=== PATIENT | female | born 1975 | race Caucasian/White ===

== ENCOUNTER → 2020-11-19 | Outpatient (CLI) | payer BC, OTHER ==
[~2020-11-19] MED LIST: ALBUTEROL2.5 MG/3 M INH; BUSPIRONE HCL5 MG PO; CLONAZEPAM 1 MG1 M1 PO; CLONAZEPAM2 MG PO; CRUTCH1 EACH MC; DOTTI1 EAC1; FLEXERIL PO; FLUTICASONE PRO16 GM NASAL; HYDROCHLOROTHIA25 M1 PO; LOPID600 MG PO; LOSARTAN-HCTZ1 EACH PO; PREVACID30 MG PO; TRAZODONE 150150 M1 PO; TRAZODONE HCL50 MG PO; VENTOLIN HFA 1818 GM INH; ZESTORETIC 10-1 EACH PO; ZOCOR 10 MG TAB10 M1 PO; ZOCOR 10 MG TAB10 MG PO; ZYRTEC10 MG PO
== END ==
LOC: LAB 07:56
PROVIDERS: ATTEND Student in an Organized Health Care Education/Training Program
DX: Z01.812 Encounter for preprocedural laboratory examination (principal); Z20.822 Contact with and (suspected) exposure to COVID-19

== ENCOUNTER 2020-11-22 06:08 | Day surgery (SDC) | payer BC, OTHER ==
[~2020-11-22] VITALS: Ht 162.6 cm; Wt 97.1 kg
--- NOTE | ~2020-11-22 | O ---
[facility] [place] [address] OPERATIVE REPORT Name: FILIBERTO FITZGERALD Room #: 150-1 [facility] M.R.#: [id number] Admission: 11/22/20 Attend Phys: Tyrone Duong MD Discharge: Date of : 71 Report #: [id number] THIS REPORT FOR: cc: Darya Barrios MD, Pamela MD Shapiro,Tyrone Banuelos MD ~ DATE OF SERVICE: 11/22/2020 PREOPERATIVE DIAGNOSIS: Deviated nasal septum with nasal airway obstruction. POSTOPERATIVE DIAGNOSIS: Deviated nasal septum with nasal airway obstruction. OPERATIVE PROCEDURE: Nasal septoplasty. ANESTHESIA: General by laryngeal mask. HISTORY OF PRESENT ILLNESS: The patient was taken to the operating room and placed in supine position. General anesthesia was induced by laryngeal mask. Once adequate general anesthesia was obtained, local nasal anesthesia was induced by submucoperichondrial injection of 1% lidocaine with 1:100,000 epinephrine and topical application of cocaine solution. The patient was then draped in a sterile manner. The patient had a nasal septal deviation primarily to the left side. A hemitransfixion incision was placed on the left side of the nose and the mucoperichondrium and mucoperiosteum were elevated off of the septum. The cartilage was incised in the form of the bony cartilaginous junction and the portion of cartilage and bone was removed from the mid portion of the septum. There was a septal spur along the floor consisting of hypertrophic cartilage and a fracture of the maxillary crest. The cartilage was removed using a long strip. The maxillary crest was then fractured and rongeured. After these maneuvers, the septum sat more in the midline. The hemitransfixion incision was then closed. A 4-0 chromic suture and a 4-0 plain mattress suture was placed as well. The patient tolerated the procedure well. Blood loss approximately 10 mL. The patient was then awoken and taken to recovery room in stable condition for postoperative monitoring. By: 0715 0725 Tyrone Duong MD /nt
[2020-11-22 06:55] VITALS: BP 101/69
[2020-11-22 07:16] LABS: HEMATOCRIT 41.7 % (37.0-47.0); MCH 32.3 pg (26.0-34.0); MCHC 33.6 g/dL (28.0-37.0); MCV 96.1 fL (80.0-100.0); RBC 4.34 mil/uL (4.20-5.00); RDW 13.5 % (10.5-14.5); WBC 9.5 thou/uL (4.0-11.0)
--- NOTE | 2020-11-22 07:31 | H ---
[facility] [place] [address] HISTORY AND PHYSICAL Name: FILIBERTO FITZGERALD Room #: 150-1 [facility] M.R.#: [id number] Admission: 11/22/20 Attend Phys: Tyrone Duong MD Discharge: Date of : 71 Report #: [id number] THIS REPORT FOR: cc: Darya Barrios MD, Pamela MD Shapiro,Tyrone Banuelos MD ~ DATE OF SERVICE: 11/22/2020 Her procedure is scheduled for 11/22. HISTORY OF PRESENT ILLNESS: The patient has difficulty breathing through her nose. She has particularly difficult time breathing on the left side of her nose with a deviated nasal septum and severe epistaxis in the past. She has had multiple nasal packs and cauterization in the distant past. She was diagnosed with obstructive sleep apnea with a sleep test in August. She has tried to use a CPAP machine, but cannot do so. She has nasal airway obstruction because of the deviated nasal septum. A CT scan of her sinuses shows a deviated nasal septum to the left side with a septal spur along the floor on the right. She did not have evidence of chronic sinusitis. PAST MEDICAL HISTORY: Otherwise, significant for asthma and high blood pressure. MEDICATIONS: Include Prevacid, Zyrtec, losartan, hydrochlorothiazide, albuterol. ALLERGIES: SHE IS ALLERGIC TO PERCOCET. PHYSICAL EXAMINATION: She has a deviated nasal septum to the left side anteriorly with a septal spur along the floor on the right. She did not have signs of infection or scarring. She had no adenopathy or masses in her neck. Her oropharynx were clear. IMPRESSION: Deviated nasal septum with nasal airway obstruction, complicating obstructive sleep apnea and frequent sinusitis. PLAN: Nasal septoplasty. <ELECTRONICALLY SIGNED> By: Tyrone Duong MD 11/22/20 0731 1153 1220 Tyrone Duong MD /nt
--- NOTE | 2020-11-22 07:31 | EKG ---
[place] [address] [employer] [facility] [place] [address] ELECTROCARDIOGRAM REPORT Name: FILIBERTO FITZGERALD Room #: 150-[address] [place] [address].#: [id number] Admission: 11/22/20 Attend Phys: Tyrone Duong MD Discharge: Date of : 71 Report #: [id number] [facility] Test Date: 2020-11-22 Test Time: 06:46:31 Pat Name: FILIBERTO FITZGERALD Department: Room: [facility] Gender: F Stapler Machine: CINDY : 1975 Requested By: Tyrone Duong Order Number: [id number] MD: Jesse Felder Measurements Intervals [place] Rate: 67 P: 47 DE: 201 QRS: 4 QRSD: 102 T: 23 QT: 397 QTc: 419 Interpretive Statements Sinus rhythm Low voltage, precordial leads Abnormal R-wave progression, early transition No previous ECG available for comparison Electronically Signed On 11-22-2020 7:31:05 CDT by Jesse Felder [email or web address] <ELECTRONICALLY SIGNED> By: Jesse Felder MD, [facility] 11/22/20 0731 0646 0646 Jesse Felder MD, FACC /EPI
[2020-11-22 07:35] LABS: CALCIUM 9.2 mg/dL (8.5-10.1); CREATININE 1.3 mg/dL (0.6-1.0)
[2020-11-22 07:37] LABS: POTASSIUM 3.1 mmol/L (3.5-5.1)
[2020-11-22 07:42] LABS: ALBUMIN 3.4 g/dL (3.4-5.0); TOTAL BILIRUBIN 0.6 mg/dL (0.2-1.0); TOTAL PROTEIN 6.5 g/dL (6.4-8.2)
[2020-11-22] MEDS ORDERED: CEPHALEXIN500 MG PO (08:11)
[2020-11-22] MEDS ORDERED: NORCO7.5 PO (08:11)
[2020-11-22 08:38] VITALS: BP 101/69
== END 2020-11-22 09:15 | disposition home or self-care (01) ==
LOC: OR → TBA 06:08 → OR 07:56
PROVIDERS: ATTEND Otolaryngology
DX: J34.2 Deviated nasal septum (principal); J34.89 Other specified disorders of nose and nasal sinuses; G47.33 Obstructive sleep apnea (adult) (pediatric); I10 Essential (primary) hypertension; J45.909 Unspecified asthma, uncomplicated; Z98.890 Other specified postprocedural states; Z79.899 Other long term (current) drug therapy; Z88.8 Allergy status to other drugs, medicaments and biological substances
CPT/HCPCS: 50010; 50101; 50386; 50398; 56524; 56528; 62110; 62900; 70005